=== PATIENT | female | born 2000 | race Caucasian/White ===

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

== ENCOUNTER 2019-04-24 11:52 | Observation (INO) ==
[2019-04-24] MEDS ORDERED: ONDANSETRON 4 MG OD TAB PO STA (12:26)
[2019-04-24 12:49] LABS: Basophils # (auto) 0.02 K/uL (0-0.2); Basophils % (auto) 0.1 %; Eosinophils # (auto) 0.07 K/uL (0-0.5); Eosinophils % (auto) 0.4 %; Hematocrit (blood only) 35.8 % (37-47); Hemoglobin 12.2 g/dL (12.0-16.0); Immature Granulocytes # (auto) 0.12 K/uL (0.00-0.02); Immature Granulocytes % (auto) 0.6 %; Lymphocytes # (auto) 1.65 K/uL (1.2-3.4); Lymphocytes % (auto) 8.7 %; Mean Corpuscular Volume 85.9 fL (80-100); Mean Platelet Volume 11.5 fL (7.4-10.4); Monocytes # (auto) 1.01 K/uL (0.11-0.59); Monocytes % (auto) 5.3 %; Neutrophils % (auto) 84.9 %; Platelet Count 167 K/uL (130-400); RDW Coefficient of Variation 13.5 % (11.5-14.5); RDW Standard Deviation 42.1 fL (36.4-46.3); Red Blood Count 4.17 M/uL (4.2-5.4); White Blood Count 19.07 K/uL (4.8-10.8)
[2019-04-24 12:50] LABS: Mean Corpuscular Hgb Conc 34.1 g/dL (32-36)
[2019-04-24 13:23] LABS: Albumin Level 2.8 gm/dl (3.4-5.0); BUN Creatinine Ratio 6.5 (10-20); Calcium 9.1 mg/dl (8.5-10.1); Est GFR (African American) 89.6; Est GFR (Non-African American) 77.3
[2019-04-24 13:26] LABS: Albumin Globulin Ratio 0.8 (0.9-2); Bilirubin,Total 0.5 mg/dl (0.2-1); Globulin 3.7 gm/dl (2.5-4.0); Total Protein 6.5 gm/dl (6.4-8.2)
[2019-04-24] MEDS ORDERED: ACETAMINOPHEN 325 MG TAB PO PRN (13:30)
[2019-04-24] MEDS ORDERED: PROMETHAZINE HCL 25 MG in SODIUM CHLORIDE 0.9% 50 ML IV PRN (13:35)
[2019-04-24] MEDS ORDERED: MoRPHine SULFATE 2 MG/ML CARP IV PRN ×2 (13:35→15:50)
[2019-04-24] MEDS ORDERED: ONDANSETRON INJ 2 MG/ML 2 ML VIAL IV PRN (13:35)
[2019-04-24] MEDS ORDERED: ACETAMINOPHEN 1000 MG/100 ML IV IV ONE (13:38)
[2019-04-24] MEDS ORDERED: ACETAMINOPHEN 1,000 MG/100 ML VIAL IV STA (13:42)
[2019-04-24 13:45] LABS: Appearance Urine Cloudy (Clear); Bacteria Urine Automated 1+ (Negative); Bilirubin Urine Negative (Negative); Blood Urine Trace (Negative); Color Urine Dark Yellow; Epithelial Cell Urine Auto >30 /lpf (0-5); Glucose Urine UA Negative (Negative); Ketones Urine Negative (Negative); Leukocyte Esterase Urine 1+ (Negative); Nitrite Urine Negative (Negative); Protein Urine Trace (Negative); Specific Gravity Urine 1.025 (1.000-1.030); Urobilinogen Urine Negative (Negative); WBC Urine Automated >30 /hpf (0-5)
[2019-04-24] MEDS: LACTATED RINGER'S 1,000 ML IV PRN ×3 (13:46→19:06)
--- NOTE | 2019-04-24 14:32 | Obstetrical Progress Note ---
Date of Service April 24, 2019 Assessment & Plan (1) Kidney stone complicating : Subjective 19yo G1 at 34.4 weeks GA. Patient presents with acute onset sharp stabbing right midback and flank pain that started last night. Reports onset on N/V this morning. Denies fevers/chills or dysuria. Reports pain is colicky in nature to her pain that is unchanged with movement. Patient is noted to be constantly moving during interview. Denies any prior hx of kidney stone. Denies any ab dominal pain. Denies contractions, VB, or LOF. Good FM Physical Exam Gastrointestinal (Abdomen): normal bowel sounds, soft, nontender, no hepatosplenomegaly Inspection/Auscultation: abdomen normal to inspection Percussion/Palpation: abdomen soft and normal to percussion; no guarding and abdomen not rigid Genitourinary: no CVA tenderness OB Exam Monitor Tracing: + external FHT monitor used and + category I Results & Data Vital Signs (Past 12 Hours) Vital Signs Temp Pulse Resp BP 04/24/19 12:01 36.5 C 20 04/24/19 11:54 75 132/60
--- NOTE | 2019-04-24 14:35 | History & Physical Report ---
Date of Service April 24, 2019 Assessment & Plan (1) Kidney stone complicating : 19yo G1 at 34.4 weeks GA. 1. Fetus: Reactive NST, qdaily NST 2. Labor: No S/S 3. Kidney stone: Continue IV fluids. Tylenol scheduled with morphine for breakthrough. + soft markers for UTI will start Macrobid awaiting urine culture. History of Present Illness Primary Care Provider: NO PCP 19yo G1 at 34.4 weeks GA. Patient presents with acute onset sharp stabbing right midback and flank pain that started last night. Reports onset on N/V this morning. Denies fevers/chills or dysuria. Reports pain is colicky in nature to her pain that is unchanged with movement. Patient is noted to be constantly moving during interview. Denies any prior hx of kidney stone. Denies any abdominal pain. Denies contractions, VB, or LOF. Good FM Allergies Allergy/AdvReac Type Severity Reaction Status Date / Time No Known Allergies Allergy Verified 04/12/19 18:08 Patient History Medical History History of otitis media Hx: UTI (urinary tract infection) No chronic diseases present No significant past surgical history Social History Preferred Language: Malay Beliefs That Will Affect Care: None marital status: Single Current Living Situation: Other Current Living Situation Comment: sister Feels Safe at Home: Yes Smoking Status: Current every day smoker Tobacco Type: cigarettes Second Hand Exposure: Yes Hx Alcohol Use: No Hx Substance Use: No Physical Exam Cardiovascular: RRR, no murmur, no edema Chest (Breasts): normal inspection/palpation of breasts Gastrointestinal (Abdomen): normal bowel sounds, soft, nontender, no hepatosplenomegaly Inspection/Auscultation: abdomen not distended Percussion/Palpation: no guarding and abdomen not rigid Genitourinary: no CVA tenderness OB Exam Monitor Tracing: + external FHT monitor used and + category I Results & Data Vital Signs (Past 12 Hours) Vital Signs Temp Pulse Resp BP 04/24/19 12:01 36.5 C 20 04/24/19 11:54 75 132/60 Laboratory Results Laboratory Results - last 24 hr 04/24/19 04/24/19 04/24/19 12:33 12:33 13:15 WBC 19.07 H RBC 4.17 L Hgb 12.2 Hct 35.8 L MCV 85.9 MCH 29.3 MCHC 34.1 RDW Std Deviation 42.1 RDW Coeff of Martha 13.5 Plt Count 167 MPV 11.5 H Immature Gran % (Auto) 0.6 Neut % (Auto) 84.9 Lymph % (Auto) 8.7 Brooke % (Auto) 5.3 Eos % (Auto) 0.4 Baso % (Auto) 0.1 Immature Gran # (Auto) 0.12 H Neut # (Auto) 16.20 H Lymph # (Auto) 1.65 Brooke # (Auto) 1.01 H Eos # (Auto) 0.07 Baso # (Auto) 0.02 Sodium 140 Potassium 4.0 Chloride 111 H Carbon Dioxide 21 Anion Gap 9.0 BUN 7 Creatinine 1.04 Est Cr Clr Drug Dosing 102.0 Est GFR ( Amer) 89.6 Est GFR (Non-Af Amer) 77.3 BUN/Creatinine Ratio 6.5 L Glucose 83 Calcium 9.1 Total Bilirubin 0.5 AST 18 ALT 19 Alkaline Phosphatase 103 Total Protein 6.5 Albumin 2.8 L Globulin 3.7 Albumin/Globulin Ratio 0.8 L Urine Color Dark Yellow Urine Appearance Cloudy A Urine pH 6.0 Ur Specific [place] 1.025 Urine Protein Trace H Urine Glucose (UA) Negative Urine Ketones Negative Urine Blood Trace H Urine Nitrite Negative Urine Bilirubin Negative Urine Urobilinogen Negative Ur Leukocyte Esterase 1+ H Urine WBC (Auto) >30 H Urine RBC (Auto) 10-30 H U Epithel Cells (Auto) >30 H Urine Bacteria (Auto) 1+ H Urine Crystals Calcium Oxalate A
--- NOTE | 2019-04-24 15:10 | Ultrasound Report ---
RENAL ULTRASOUND HISTORY: Eval for kidney stones COMPARISON: None. FINDINGS: Right kidney: 12.7 cm. Mild hydronephrosis. No definite renal calculi. Normal corticomedullary differ entiation and cortical thickness. Left kidney: 12.0 cm. No hydronephrosis. Normal corticomedullary differentiation and cortical thickne ss. Bladder: Decompressed and not visualized. IMPRESSION: 1. Mild right hydronephrosis. 2. No renal calculi identified. 3. Normal left kidney. Electronically signed by: Humble Sommers M.D. 04/24/2019 3:09 PM
[2019-04-24] MEDS: NITROFURANTOIN MONOHYDRATE 100 MG CAP PO SCH (16:58)
[2019-04-24] MEDS: ACETAMINOPHEN 325 MG TAB PO SCH ×2 (18:47→22:34)
[2019-04-24] MEDS ORDERED: NITROFURANTOIN MONOHYDRATE 100 MG CAP PO SCH (21:00)
[2019-04-25] MEDS: LACTATED RINGER'S 1,000 ML IV PRN ×2 (00:34→05:24)
[2019-04-25] MEDS: ACETAMINOPHEN 325 MG TAB PO SCH ×2 (02:30→05:29)
[2019-04-25] MEDS ORDERED: NITROFURANTOIN MONOHYDRATE 100 MG CAP PO SCH (06:00)
--- NOTE | 2019-04-25 08:08 | Obstetrical Progress Note ---
Date of Service April 25, 2019 Assessment & Plan (1) Kidney stone complicating : 19yo G1 at 34.4 weeks GA. 1. Fetus: Reactive NST today, qdaily NST 2. Labor: No S/S 3. Kidney stone: Near resolution of symptoms. patient stable for discharge. + soft markers for UTI will d/c with rx for Macrobid awaiting urine culture. 4. Recommended clinic follow up for later this week 5. vitals: normal Subjective Patient doing well this morning. No acute events overnight. Reports significant symptomatic improvement with only a mild dull ache in her mid back. Patient has remained afrebrile. No N/V. No ctx, VB, LOF. Goood FM Physical Exam Cardiovascular: RRR, no murmur, no edema Chest (Breasts): normal inspection/palpation of breasts Gastrointestinal (Abdomen): normal bowel sounds, soft, nontender, no hepatosplenomegaly Inspection/Auscultation: abdomen not distended Percussion/Palpation: no guarding and abdomen not rigid Genitourinary: no CVA tenderness OB Exam Monitor Tracing: + external FHT monitor used and + category I Reactive NST Results & Data Vital Signs (Past 12 Hours) Vital Signs Temp Pulse Resp BP 04/25/19 07:28 73 118/56 L 04/24/19 23:11 36.8 C 18 04/24/19 23:10 64 129/60
--- NOTE | 2019-04-30 20:12 | Discharge Summary ---
HOSPITAL COURSE: The patient is a 19-year-old, G1, at 34 weeks 4 days gestational age at time of admission. The patient was admitted for a sharp, stabbing mid back pain and flank pain as well as nausea and vomiting. The patient underwent evaluation for kidney stones in the ascending urinary tract infection. The initial urinalysis showed some soft markers for urinary tract infections, but was otherwise unremarkable. This was followed by a renal ultrasound, which showed a mildly dilated right ureter, but was otherwise unremarkable. The patient was admitted for pain control secondary to the kidney stones as well as nausea and vomiting and inability to keep down fluids. The patient was given IV fluids as well as IV pain control medications. The patient was given Zofran for nausea and vomiting, which all helped to significantly relieve her symptoms. The patient remained afebrile and had reported being afebrile at time of admission. The patient reported on hospital day #2 that her pain had significantly improved overnight and was no longer needing medications. She was also reporting that her nausea and vomiting had resolved and felt well enough for discharge. The patient was then discharged home in stable condition. Urinalysis returned later that day which was noted to be negative. The patient was preliminarily started on p.o., nitrofurantoin for the positive soft markers on the urinalysis and was discontinued after the urine culture returned negative. The patient was discharged home in stable condition with follow up in clinic in 1 week.
== END 2019-04-25 08:45 | disposition home or self-care (01) ==
LOC: OPB 11:52 → 4S1 11:52

== ENCOUNTER 2019-05-17 21:02 | Inpatient (IN) ==
[2019-05-17] MEDS ORDERED: miSOPROStol 50 MCG TAB PO ONE (21:49)
[2019-05-17] MEDS ORDERED: OXYTOCIN 30 UNITS/500 ML BAG IV PRN (21:49)
[2019-05-17] MEDS ORDERED: PENICILLIN G POTASSIUM 6 MU in DEXTROSE 5% 250 ML IV STA (21:58)
[2019-05-17 22:10] LABS: Hematocrit (blood only) 34.2 % (37-47); Hemoglobin 11.6 g/dL (12.0-16.0); Mean Corpuscular Volume 85.3 fL (80-100); Mean Platelet Volume 11.6 fL (7.4-10.4); Platelet Count 179 K/uL (130-400); RDW Coefficient of Variation 13.3 % (11.5-14.5); RDW Standard Deviation 41.3 fL (36.4-46.3); Red Blood Count 4.01 M/uL (4.2-5.4); White Blood Count 12.94 K/uL (4.8-10.8)
[2019-05-17] MEDS: LACTATED RINGER'S 1,000 ML IV PRN (22:19)
[2019-05-17 22:20] LABS: Mean Corpuscular Hgb Conc 33.9 g/dL (32-36)
[2019-05-18] MEDS: PENICILLIN G POTASSIUM 3 MU in DEXTROSE 5% 100 ML IV PRN ×6 (02:22→22:06)
[2019-05-18] MEDS ORDERED: BUTORPHANOL TARTRATE 2 MG/ML VIAL IV PRN (02:37)
[2019-05-18] MEDS ORDERED: OXYTOCIN 30 UNITS/500 ML BAG IV PRN (02:37)
[2019-05-18] MEDS ORDERED: BUTORPHANOL TARTRATE 2 MG/ML VIAL IV STA (06:51)
[2019-05-18] MEDS ORDERED: BUTORPHANOL TARTRATE 1 MG/ML VIAL IV STA (07:20)
--- NOTE | 2019-05-18 07:43 | History & Physical Report ---
Date of Service May 18, 2019 Assessment & Plan (1) Supervision of normal first : (2) 38 weeks gestation of : (3) Carrier of group B Streptococcus: (4) PROM (premature rupture of membranes): pt has been admitted. iv, labs. categ 1 fetus. on pit. History of Present Illness Chief Complaint: leaking clear fluid since 630am on 05/17/19 Primary Care Provider: NO PCP 19yo at 38+wks shikha presents to L&D after PROM yesterday at 630pm. She called and noted initial gush and then continued leaking. Was seen earlier in day and no rom found. She denied ctx. Offered and accepted cytotec po. Contractions increased and started on pitocin. Required a couple doses of stadol for pain control. Cervix only 1cm. pnc c/b GBS POS, on pcn pnl rh Pos , rubella Immune, gbs pos obh: g1 gynh: no stds pmh: neg psh: neg Allergies Allergy/AdvReac Type Severity Reaction Status Date / Time No Known Allergies Allergy Verified 05/17/19 11:14 Home Medications Home Medications Medication Instructions Recorded Confirmed Type prenat.vits,colt,eoz-oyiq-veyrq 1 caplet PO DAILY 05/01/19 05/17/19 History Patient History Medical History History of otitis media Hx: UTI (urinary tract infection) Kidney stone complicating Kidney stone at 34 weeks gestation, passed an no longer problematic No chronic diseases present No significant past surgical history Family History Grandfather (Paternal) Diabetes Grandmother (Paternal) Diabetes Grandfather (Paternal) Myocardial infarction Aunt Breast cancer Grandfather No problems noted. Father Heart disease Deep vein thrombosis Hypertension Pulmonary embolism Mother Hypertension Grandmother (Maternal) Cervical cancer Sister Thyroid disease Social History Preferred Language: Lebanese Communication Ability: Effective Draw Hand Required: No Beliefs That Will Affect Care: None marital status: Single Current Living Situation: Family Current Living Situation Comment: sister Other Information That Helps Us Care for You: No Feels Safe at Home: Yes Safety Concerns: Feels Safe At This Time Smoking Status: Current every day smoker Tobacco Type: cigarettes ; Do You Dip or Chew Tobacco: No ; Second Hand Exposure: Yes ; Hx Alcohol Use: No Hx Substance Use: No Review of Systems as per Subjective / HPI Physical Exam Constitutional: WD/WN, vitals as above Respiratory: normal respiratory effort, lungs clear to auscultation Cardiovascular: Rate/Rhythm: regular rate and regular rhythm Gastrointestinal (Abdomen): soft gravid nt efw 7-8# Musculoskeletal: tr edema nontender calves Neurologic: grossly normal Psychiatric: A+Ox3, euthymic affect Genitourinary: Manual OB Exam: + cervical dilation (per nurse, cephalic per nurse) 1 cm, + cervical effacement 60% and + station high OB Exam Monitor Tracing: + external FHT monitor used (130 mod variability ), + external uterine monitor used (q2), + category I and + normal FHT variability Results & Data Vital Signs (Past 12 Hours) Vital Signs Temp Pulse Resp BP 05/18/19 07:19 65 134/69 05/18/19 07:08 98.2 F 71 20 130/60 05/18/19 06:22 78 20 128/86 05/18/19 05:18 98.1 F 71 16 120/63 05/18/19 05:05 98.4 F 18 05/18/19 04:00 18 05/18/19 03:46 98.4 F 18 05/18/19 03:44 71 120/57 L 05/18/19 01:48 87 125/64 05/18/19 00:47 18 05/17/19 23:23 18 05/17/19 23:06 98.6 F 05/17/19 23:00 18 05/17/19 22:39 83 111/61 05/17/19 22:30 18 05/17/19 22:00 18 05/17/19 21:20 18 05/17/19 21:08 99 H 141/78 H 05/17/19 21:06 98.6 F 18 Code Status & VTE Plan VTE Prophylaxis Plan VTE Prophylaxis will be ordered: No
--- NOTE | 2019-05-18 09:16 | Labor Progress Brief Note ---
Date of Service May 18, 2019 Subjective Reason For Note: Other (Change of shift) 19yo at 37 (+) weeks GA, admitted with PROM. course remarkable for (+) GBS. Pt initially given po cytotec and then pitocin per protocol. Stadol given for pain control. Assessment & Plan (1) PROM (premature rupture of membranes): (2) 38 weeks gestation of : - tracing Cat I - IUPC placed for easier pitcocin management - PCN for GBS - continue current plan Physical Exam Gastrointestinal (Abdomen): Gravid, obese, vtx, (+) FHT's, mild palpable ctx's q 3', EFW 8 lbs Genitourinary: OB Exam Monitor Tracing: + category I and + normal FHT variability Cervix: 80/-3, IUPC placed Results & Data Vital Signs (Past 12 Hours) Vital Signs Temp Pulse Resp BP 05/18/19 08:51 98.4 F 79 18 123/64 05/18/19 08:18 71 125/64 05/18/19 07:19 65 134/69 05/18/19 07:08 98.2 F 71 20 130/60 05/18/19 06:22 78 20 128/86 05/18/19 05:18 98.1 F 71 16 120/63 05/18/19 05:05 98.4 F 18 05/18/19 04:00 18 05/18/19 03:46 98.4 F 18 05/18/19 03:44 71 120/57 L 05/18/19 01:48 87 125/64 05/18/19 00:47 18 05/17/19 23:23 18 05/17/19 23:06 98.6 F 05/17/19 23:00 18 05/17/19 22:39 83 111/61 05/17/19 22:30 18 05/17/19 22:00 18 05/17/19 21:20 18
[2019-05-18] MEDS: LACTATED RINGER'S 1,000 ML IV PRN ×2 (09:47→16:55)
[2019-05-18] MEDS ORDERED: ePHEDrine sulfate 50 MG/ML AMP ONE (10:14)
[2019-05-18] MEDS ORDERED: BUPIVACAINE 0.25% 30 ML VIAL ONE (10:14)
[2019-05-18] MEDS ORDERED: fentaNYL citrate 100 MCG/2 ML VIAL ONE (10:15)
[2019-05-18] MEDS ORDERED: fentaNYL 2MCG/ML ROPIV 1.25MG/ML 100 ML BAG EPI ONE (10:16)
--- NOTE | 2019-05-18 11:03 | Anesthesiology Consultation ---
Date of Service May 18, 2019 Assessment & Plan Chart Review Chart Review: Acceptable Risk for Labor Epidural Consults Requested none History Height/Weight Height: 5 ft 4 in Weight: 101.151 kg Allergies Allergy/AdvReac Type Severity Reaction Status Date / Time No Known Allergies Allergy Verified 05/17/19 11:14 Medications Home Medications Medication Instructions Recorded Confirmed Last Taken prenat.vits,colt,ewa-cnjd-ajtdm 1 caplet PO DAILY 05/01/19 05/17/19 05/16/19 Active Medications Generic Name Dose Route Start Last Admin Trade Name Freq PRN Reason Stop Dose Admin Lactated Ringer's 1,000 mls @ 125 mls/hr 05/17/19 21:49 05/18/19 09:47 Lr IV 05/19/19 21:48 999 mls/hr .Q8H PRN Administration L&D Protocol Protocol Penicillin G Potassium 3 mu/ 106 mls @ 100 mls/hr 05/17/19 21:49 05/18/19 10:11 Dextrose IV 05/27/19 21:48 100 mls/hr Q4H PRN Administration Give until delivery Oxytocin 30 units in 500 mls @ 13 mls/hr 05/18/19 02:37 05/18/19 08:57 Pitocin IV 05/20/19 02:36 0.78 units/hr .Q24H PRN 13 mls/hr Labor Induction/Augmentation Titration Protocol 0.78 UNITS/HR Past Medical History Medical History History of otitis media Hx: UTI (urinary tract infection) Kidney stone complicating Kidney stone at 34 weeks gestation, passed an no longer problematic No chronic diseases present No significant past surgical history Past Family History Family History Grandfather (Paternal) Diabetes Grandmother (Paternal) Diabetes Grandfather (Paternal) Myocardial infarction Aunt Breast cancer Grandfather No problems noted. Father Heart disease Deep vein thrombosis Hypertension Pulmonary embolism Mother Hypertension Grandmother (Maternal) Cervical cancer Sister Thyroid disease Social History Smoking Status: Current every day smoker tobacco type: cigarettes Do You Dip or Chew Tobacco: No Hx Alcohol Use: No Hx Substance Use: No substance use type: does not use Physical Exam Vital Signs Last Vital Signs Temp 36.7 C 05/18/19 10:31 Pulse 83 05/18/19 11:01 Resp 20 05/18/19 10:31 BP 112/59 L 05/18/19 11:01 Pulse Ox 96 05/18/19 10:59 Testing Laboratory Results 05/17/19 22:00
[2019-05-18] MEDS ORDERED: ePHEDrine sulfate 50 MG/ML AMP IV PRN (11:10)
[2019-05-18] MEDS ORDERED: NALOXONE HCL 0.4 MG/1 ML VIAL/CARP IV PRN (11:10)
[2019-05-18] MEDS ORDERED: DiphenhydrAMINE HCL 50 MG/ML VIAL IV PRN (11:10)
[2019-05-18] MEDS ORDERED: NALBUPHINE HCL INJ 10 MG/ML AMP IV PRN (11:10)
[2019-05-18] MEDS ORDERED: NALOXONE HCL 1 MG in SODIUM CHLORIDE 0.9% 1000ML 1,000 ML IV PRN (11:10)
--- NOTE | 2019-05-18 18:25 | Labor Progress Brief Note ---
Date of Service May 18, 2019 Subjective Reason For Note: Routine Evaluation Comfortable with epidural Assessment & Plan (1) PROM (premature rupture of membranes): - tracing Cat I - comfortable with epidural - continue pitocin Physical Exam Physical Exam: Cervix: 3/100/-1 Results & Data Vital Signs (Past 12 Hours) Vital Signs Temp Pulse Resp BP Pulse Ox 05/18/19 18:20 88 123/87 05/18/19 18:19 79 99 05/18/19 18:15 76 94 05/18/19 18:14 79 96 05/18/19 18:09 70 98 05/18/19 18:06 66 120/63 05/18/19 18:04 69 96 05/18/19 17:59 69 96 05/18/19 17:58 98.1 F 18 05/18/19 17:54 63 97 05/18/19 17:51 68 102/57 L 05/18/19 17:49 69 97 05/18/19 17:44 70 97 05/18/19 17:39 66 96 05/18/19 17:36 67 118/58 L 05/18/19 17:34 66 97 05/18/19 17:29 68 97 05/18/19 17:24 67 97 05/18/19 17:21 70 124/59 L 05/18/19 17:19 72 98 05/18/19 17:14 71 97 05/18/19 17:11 73 93 05/18/19 17:09 70 97 05/18/19 17:06 70 109/59 L 05/18/19 17:04 82 96 05/18/19 16:59 71 96 05/18/19 16:54 71 97 05/18/19 16:50 80 126/58 L 05/18/19 16:49 83 98 05/18/19 16:44 84 99 05/18/19 16:42 98.1 F 18 05/18/19 16:39 77 98 05/18/19 16:35 71 108/59 L 05/18/19 16:34 80 97 05/18/19 16:29 79 97 05/18/19 16:24 73 98 05/18/19 16:20 100 H 96/54 L 94 05/18/19 16:19 85 94 05/18/19 16:14 74 96 05/18/19 16:09 76 96 05/18/19 16:05 76 108/59 L 05/18/19 16:04 74 97 05/18/19 16:03 77 94 05/18/19 15:59 73 95 05/18/19 15:58 74 94 05/18/19 15:54 72 96 05/18/19 15:50 67 108/58 L 05/18/19 15:49 80 97 05/18/19 15:45 83 94 05/18/19 15:44 74 95 05/18/19 15:39 75 95 05/18/19 15:35 77 103/57 L 05/18/19 15:34 74 95 05/18/19 15:29 74 96 05/18/19 15:24 74 98 05/18/19 15:21 79 94 05/18/19 15:20 84 109/59 L 05/18/19 15:19 83 96 05/18/19 15:14 80 97 05/18/19 15:09 86 97 05/18/19 15:05 70 130/61 05/18/19 15:04 81 97 05/18/19 14:59 87 98 05/18/19 14:54 73 96 05/18/19 14:50 83 107/59 L 05/18/19 14:49 78 96 05/18/19 14:44 76 97 05/18/19 14:41 86 93 05/18/19 14:39 75 96 05/18/19 14:38 98.4 F 18 05/18/19 14:36 76 118/59 L 05/18/19 14:34 77 96 05/18/19 14:29 78 97 05/18/19 14:24 71 95 05/18/19 14:21 80 94 05/18/19 14:20 75 100/56 L 05/18/19 14:19 70 96 05/18/19 14:15 73 94 05/18/19 14:14 74 95 05/18/19 14:09 72 98 05/18/19 14:08 79 94 05/18/19 14:05 80 111/63 05/18/19 14:04 72 97 05/18/19 13:59 85 97 05/18/19 13:54 84 98 05/18/19 13:50 93 H 130/71 05/18/19 13:49 78 98 08/16/19 13:44 72 98 05/18/19 13:41 73 94 05/18/19 13:39 69 96 05/18/19 13:35 67 126/59 L 05/18/19 13:34 73 96 05/18/19 13:29 71 96 05/18/19 13:24 73 95 05/18/19 13:20 66 125/65 05/18/19 13:19 72 97 05/18/19 13:14 84 98 05/18/19 13:09 69 98 05/18/19 13:05 69 123/65 05/18/19 13:04 71 96 05/18/19 12:59 76 96 05/18/19 12:54 71 95 05/18/19 12:50 68 119/63 05/18/19 12:49 71 97 05/18/19 12:44 72 96 05/18/19 12:39 70 97 05/18/19 12:38 72 130/77 05/18/19 12:34 72 97 05/18/19 12:29 72 97 05/18/19 12:25 98.6 F 18 05/18/19 12:24 69 97 05/18/19 12:19 75 97 05/18/19 12:14 73 97 05/18/19 12:09 77 96 05/18/19 12:05 78 113/68 05/18/19 12:04 87 96 05/18/19 11:59 68 97 05/18/19 11:54 70 97 05/18/19 11:50 86 124/73 05/18/19 11:49 86 97 05/18/19 11:44 77 97 05/18/19 11:39 77 98 05/18/19 11:35 95 H 120/67 05/18/19 11:34 94 H 98 05/18/19 11:29 101 H 98 05/18/19 11:24 70 96 05/18/19 11:20 73 114/56 L 05/18/19 11:19 73 95 05/18/19 11:17 77 94 05/18/19 11:14 65 96 05/18/19 11:09 66 96 05/18/19 11:04 78 114/55 L 96 05/18/19 11:01 83 112/59 L 05/18/19 10:59 90 96 05/18/19 10:58 72 121/56 L 05/18/19 10:55 70 123/61 05/18/19 10:54 82 96 05/18/19 10:52 77 122/60 05/18/19 10:49 69 125/71 96 05/18/19 10:46 71 123/68 05/18/19 10:44 75 96 05/18/19 10:39 91 H 96 05/18/19 10:34 86 97 05/18/19 10:31 98.1 F 88 20 123/68 05/18/19 10:29 82 98 05/18/19 10:19 75 121/70 05/18/19 09:19 72 114/64 05/18/19 08:51 98.4 F 79 18 123/64 05/18/19 08:18 71 125/64 05/18/19 07:19 65 134/69 05/18/19 07:08 98.2 F 71 20 130/60
[2019-05-18] MEDS: fentaNYL 2MCG/ML ROPIV 1.25MG/ML 100 ML BAG EPI PRN (19:36)
[2019-05-18] MEDS ORDERED: Nursing to Pharmacy Communication ONE (23:48)
[2019-05-19] MEDS ORDERED: LIDOCAINE HCL 2% MPF (LOCAL) 5 ML VIAL INFIL ONE (00:12)
[2019-05-19] MEDS ORDERED: fentaNYL citrate 100 MCG/2 ML VIAL ONE (00:12)
[2019-05-19] MEDS: LACTATED RINGER'S 1,000 ML IV PRN (00:26)
[2019-05-19] MEDS: fentaNYL 2MCG/ML ROPIV 1.25MG/ML 100 ML BAG EPI PRN (01:10)
[2019-05-19] MEDS: PENICILLIN G POTASSIUM 3 MU in DEXTROSE 5% 100 ML IV PRN (02:06)
[2019-05-19 03:11] LABS: Base Excess Cord Venous Blood -2.6 mEq/L (-7.7-1.9); Cord Venous Blood HCO3 22 mmol/L (18.4-26.8); Cord Venous Blood PCO2 39 mmHg (30.4-57.2); Cord Venous Blood PO2 23 mmHg (14.1-43.3); Cord Venous Blood pH 7.38 (7.20-7.44)
--- NOTE | 2019-05-19 03:11 | Delivery Summary ---
Vaginal Delivery Summary Date of Service May 19, 2019 Findings: Viable male with Apgars of 8 and 9 arterial and venous cord gases pending midline periclitoral laceration and left lateral second-degree laceration both repaired with running 2-0 Vicryl cord gases cord blood samples obtained placenta delivered spontaneously estimated blood loss 300 cc Labor note: The patient is a 19-year-old 1 para 0 with an EDC of 02 June at 37+ weeks gestational age who presented to labor and delivery with premature rupture of membranes. The patient had a gush of fluid and presented to L&D where rupture of membranes was confirmed. Patient's course was remarkable for a kidney stone at 34 weeks gestational age which appeared to pass spontaneously. Laboratory values for the show blood type of A+ antibody negative, rubella immune, hepatitis B negative, she had a negative cell free DNA screening, she had a normal 1 hour Glucola x2, and had positive GBS bacteria during the . Upon admission after rupture of membranes was diagnosed the patient was noted to be fingertip and 50%. Tracing was category 1. Patient initially received Cytotec 50 mcg p.o. and after contraction pattern developed was started on Pitocin augmentation. The patient received Stadol 1 mg IV x2 for pain control. Approximately 8 hours after admission the patient was still 1 cm dilated but jaymie in a regular pattern. Delivering physician assumed care for the patient. Intrauterine pressure catheter was placed and Pitocin was continued to be increased per protocol to achieve an adequate labor pattern. Patient became very uncomfortable and anesthesia was consulted and an epidural was placed. The patient progressed slowly into an active labor pattern and then went from 5 cm to fully dilated and approximately 4 hours. Patient began her second stage and pushed for approximately 30 minutes delivering the vi able male cord was clamped and cut cord gases cord blood samples obtained placenta was delivered spontaneously with some gentle traction on the placental body at 15 minutes . A midline second-degree periclitoral laceration and a left lateral laceration were both repaired with running 4-0 Vicryl sutures. Estimated blood loss for the delivery was 300 cc. Sponge and needle count was correct.
[2019-05-19] MEDS ORDERED: OXYTOCIN 30 UNITS/500 ML BAG IV PRN (03:15)
[2019-05-19] MEDS ORDERED: SUPERCREAM 0.870% 15 GM JAR EXT PRN (03:15)
[2019-05-19] MEDS ORDERED: ACETAMINOPHEN 325 MG TAB PO PRN (03:15)
[2019-05-19] MEDS ORDERED: HYDROCORTISONE ACETATE 25 MG SUPP PR PRN (03:15)
[2019-05-19] MEDS ORDERED: BENZOCAINE 20% AER SPR 82.5 GM CAN EXT PRN (03:15)
[2019-05-19] MEDS ORDERED: DIPHTHERIA/TETANUS/PERTUSSIS 0.5 ML SYR/VIAL IM ONE (03:15)
[2019-05-19 03:16] LABS: CO2 Cord Arterial Blood 45 mmHg (39.1-73.5); HCO3 Cord Arterial Blood 20 mmol/L (19.7-28.5); O2 Saturation Cord Venous Bld < 60.0 % (<68); pH Cord Arterial Blood 7.27 (7.1-7.38)
[2019-05-19 03:17] LABS: Oxygen Sat Cord Arterial Blood < 60.0 % (<60)
[2019-05-19] MEDS: IBUPROFEN 600 MG TAB PO PRN ×2 (04:16→16:01)
--- NOTE | 2019-05-19 06:14 | Obstetrical Progress Note ---
Date of Service May 19, 2019 Assessment & Plan (1) Status post vaginal delivery: Padmini is a 19 yo on PPD 1 after - GBS+, Rh +, Rubella immune; treated with penicillin -Vitals reviewed and WNL -patient is doing clinically well encourage ambulation, provide analgesia as needed, monitor lochia - After discharge will have [address] Juan. Subjective Ambulation: ambulating normally Voiding: no voiding problems Passing Gas:: Yes Diet Tolerance:: regular diet Lochia:: Moderate Feeding Type:: breast feeding Current Pain Level(1-10): 3 examined at bedside Constitutional: no fever, no chills and no sweats Eyes: no worsening vision Respiratory: no cough and no dyspnea Cardiovascular: no chest pain, no palpitations, no edema and no calf pain Breast: no breast pain Gastrointestinal: no nausea and no vomiting Genitourinary (female): no dysuria and no urinary frequency Neurologic: no headache(s) Physical Exam Constitutional WD/WN, vitals as above no acute distress Respiratory normal respiratory effort, lungs clear to auscultation does not use accessory muscles Auscultation: no crackles, no rales, no rhonchi, no wheezes and no pleural rub Cardiovascular Rate/Rhythm: regular rate and regular rhythm Heart Sounds: normal S1 and normal S2; no gallop, no murmur and no cardiac rub Extremities: no calf tenderness and no pedal edema Gastrointestinal (Abdomen) Inspection/Auscultation: normal bowel sounds; abdomen not distended Percussion/Palpation: abdomen soft Genitourinary Uterus: fundus firm, palpable _ cm below the uterus Results & Data Vital Signs (Past 12 Hours) Vital Signs Temp Pulse Resp BP Pulse Ox 05/19/19 05:31 75 116/59 L 05/19/19 05:21 107 H 124/65 05/19/19 05:06 95 H 114/61 05/19/19 04:51 87 18 122/63 05/19/19 04:36 86 117/64 05/19/19 04:21 93 H 18 106/52 L 05/19/19 04:06 86 105/55 L 05/19/19 03:51 98 H 18 110/59 L 05/19/19 03:36 100 H 16 112/64 05/19/19 03:21 98 H 18 109/58 L 05/19/19 03:06 97 H 18 116/57 L 05/19/19 02:56 116 H 96 05/19/19 02:51 99 H 18 130/63 95 05/19/19 02:46 114 H 95 05/19/19 02:44 112 H 139/74 05/19/19 02:41 96 H 94 05/19/19 02:36 97 H 95 05/19/19 02:31 134 H 96 05/19/19 02:30 130 H 133/78 05/19/19 02:26 100 H 94 05/19/19 02:21 85 96 05/19/19 02:16 82 95 05/19/19 02:14 144 H 118/55 L 84 L 05/19/19 02:11 79 77 L 05/19/19 02:08 99 H 81 L 05/19/19 02:06 80 96 05/19/19 02:02 75 69 L 05/19/19 02:01 94 H 124/56 L 05/19/19 02:00 93 H 97 05/19/19 01:55 37.1 C 91 H 20 95 05/19/19 01:50 92 H 97 05/19/19 01:45 94 H 97 05/19/19 01:44 98 H 121/63 05/19/19 01:40 77 96 05/19/19 01:35 93 H 95 05/19/19 01:30 100 H 114/59 L 96 05/19/19 01:25 98 H 95 05/19/19 01:20 91 H 95 05/19/19 01:15 86 96 05/19/19 01:14 93 H 20 116/68 05/19/19 01:10 94 H 97 05/19/19 01:05 103 H 98 05/19/19 01:00 123 H 143/67 H 97 05/19/19 00:55 85 97 05/19/19 00:50 80 96 05/19/19 00:45 84 96 05/19/19 00:44 104 H 122/62 05/19/19 00:41 94 H 128/60 05/19/19 00:40 104 H 97 05/19/19 00:38 98 H 127/58 L 05/19/19 00:35 80 122/57 L 94 05/19/19 00:32 88 16 121/59 L 05/19/19 00:30 79 94 05/19/19 00:29 97 H 16 120/69 05/19/19 00:26 95 H 118/59 L 05/19/19 00:25 96 H 97 05/19/19 00:23 96 H 16 123/62 05/19/19 00:22 86 92 05/19/19 00:21 83 18 112/57 L 05/19/19 00:20 80 93 05/19/19 00:15 94 H 93 05/19/19 00:14 85 93 05/19/19 00:10 119 H 95 05/19/19 00:07 95 H 94 05/19/19 00:05 100 H 136/76 97 05/19/19 00:00 36.9 C 100 H 20 97 05/18/19 23:55 98 H 95 05/18/19 23:52 91 H 94 05/18/19 23:50 80 127/62 96 05/18/19 23:45 103 H 97 05/18/19 23:40 105 H 97 05/18/19 23:35 104 H 132/75 94 05/18/19 23:33 82 92 05/18/19 23:30 86 97 05/18/19 23:27 86 93 05/18/19 23:25 88 96 05/18/19 23:21 69 125/56 L 05/18/19 23:20 74 96 05/18/19 23:17 83 91 05/18/19 23:15 87 97 05/18/19 23:10 77 96 05/18/19 23:05 75 132/61 95 05/18/19 23:00 79 97 05/18/19 22:59 85 93 05/18/19 22:55 88 97 05/18/19 22:53 78 92 05/18/19 22:50 83 138/63 97 05/18/19 22:48 81 91 05/18/19 22:45 85 98 05/18/19 22:40 74 94 05/18/19 22:39 72 94 05/18/19 22:35 77 120/58 L 98 05/18/19 22:33 81 93 05/18/19 22:30 76 97 05/18/19 22:25 78 97 05/18/19 22:21 78 16 129/63 93 05/18/19 22:20 83 97 05/18/19 22:15 82 95 05/18/19 22:13 86 94 05/18/19 22:10 99 H 98 05/18/19 22:08 36.8 C 16 05/18/19 22:05 74 123/57 L 96 05/18/19 22:01 79 94 05/18/19 22:00 82 96 05/18/19 21:55 87 97 05/18/19 21:51 86 117/58 L 05/18/19 21:50 83 97 05/18/19 21:45 84 97 05/18/19 21:40 80 98 05/18/19 21:35 79 111/58 L 96 05/18/19 21:30 76 97 05/18/19 21:25 82 93 05/18/19 21:21 89 117/51 L 94 05/18/19 21:20 91 H 96 05/18/19 21:15 91 H 94 05/18/19 21:14 81 95 05/18/19 21:09 86 97 05/18/19 21:08 96 H 92 05/18/19 21:06 97 H 16 110/52 L 05/18/19 21:04 94 H 96 05/18/19 21:01 72 94 05/18/19 21:00 36.9 C 16 05/18/19 20:59 89 97 05/18/19 20:54 74 96 05/18/19 20:50 78 119/56 L 05/18/19 20:49 83 97 05/18/19 20:48 84 92 05/18/19 20:44 80 96 05/18/19 20:39 78 98 05/18/19 20:35 79 16 121/58 L 05/18/19 20:34 75 96 05/18/19 20:29 78 97 05/18/19 20:27 79 92 05/18/19 20:24 73 97 05/18/19 20:21 71 122/56 L 05/18/19 20:19 67 97 05/18/19 20:14 71 95 05/18/19 20:09 68 97 05/18/19 20:06 67 131/59 L 05/18/19 20:04 104 H 99 08/16/19 19:59 73 97 05/18/19 19:54 74 98 16 19:50 63 16 108/54 L 05/18/19 19:49 71 98 16 19:47 74 92 16 19:44 73 98 16 19:39 80 98 16 19:35 67 16 124/63 16 19:34 76 98 16 19:29 72 97 16 19:24 73 96 05/18/19 19:21 70 125/67 05/18/19 19:19 73 98 05/18/19 19:14 79 98 05/18/19 19:09 86 99 05/18/19 19:06 37.0 C 87 16 133/80 05/18/19 19:04 79 97 05/18/19 19:00 79 94 05/18/19 18:59 71 95 05/18/19 18:54 68 96 05/18/19 18:50 64 121/60 05/18/19 18:49 71 95 05/18/19 18:45 73 94 05/18/19 18:44 70 95 05/18/19 18:39 72 97 16 18:35 68 124/60 05/18/19 18:34 70 97 05/18/19 18:29 70 98 05/18/19 18:24 75 96 16 18:20 88 123/87 05/18/19 18:19 79 99 16 18:15 76 94 05/18/19 18:14 79 96
--- NOTE | 2019-05-19 06:44 | Anesthesia Procedure Note ---
Date of Service May 19, 2019 Anesthesia Post Epidural Note Vital Signs Vital Signs: Temp Pulse Resp BP Pulse Ox 37.1 C 75 18 116/59 L 96 05/19/19 01:55 05/19/19 05:31 05/19/19 04:51 05/19/19 05:31 05/19/19 02:56 Pain Intensity Abdomen: Pain Intensity: 10 Notes Mental Status: alert / awake / arousable Nausea / Vomiting: adequately controlled Pain: adequately controlled Airway Patency, RR, SpO2: stable & adequate BP & HR: stable & adequate Hydration State: stable & adequate Neuraxial Anesthesia: was administered and sensory block is resolving Anesthetic Complications: no major complications apparent and Pt Satisfied with anesthetic care Epidural: Removed without complications and With tip intact
[2019-05-19] MEDS: DOCUSATE SODIUM 100 MG CAP PO SCH ×2 (08:44→21:04)
[2019-05-19] MEDS: PRENATAL VITAMIN 1 TAB PO SCH (08:44)
[2019-05-19] MEDS: FERROUS SULFATE 325 MG TAB PO SCH (08:44)
--- NOTE | 2019-05-20 08:35 | Obstetrical Progress Note ---
Date of Service May 20, 2019 Assessment & Plan (1) Status post vaginal delivery: satisfactory progress continue current care plan. Present on Admission?: No Day #:: 1 Subjective Ambulation: ambulating normally Voiding: no voiding problems Passing Gas:: Yes Diet Tolerance:: regular diet Lochia:: Small Feeding Type:: breast feeding Review of Systems All systems reviewed & are unremarkable except as noted in HPI & below Physical Exam Constitutional WD/WN, vitals as above Cardiovascular Extremities: no calf tenderness Gastrointestinal (Abdomen) normal bowel sounds, soft, nontender, no hepatosplenomegaly Psychiatric A+Ox3, euthymic affect Genitourinary OB Exam Abdomen: + fundal height Fundus: + firm and + relation to umbilicus (1 below U) Results & Data Vital Signs (Past 12 Hours) Vital Signs Temp Pulse Resp BP Pulse Ox 05/20/19 04:45 97.7 F 75 16 94/60 L 97 05/19/19 23:35 83 17 93/60 L 96
[2019-05-20] MEDS: FERROUS SULFATE 325 MG TAB PO SCH (08:37)
[2019-05-20] MEDS: PRENATAL VITAMIN 1 TAB PO SCH (08:37)
[2019-05-20] MEDS: DOCUSATE SODIUM 100 MG CAP PO SCH ×2 (08:37→20:14)
[2019-05-20] MEDS ORDERED: BISACODYL 5 MG TABEC PO SCH (20:00)
[2019-05-20] MEDS: IBUPROFEN 600 MG TAB PO PRN (20:14)
--- NOTE | 2019-05-21 06:01 | Obstetrical Progress Note ---
Date of Service <Lynne Ness MD - Last Filed: 05/21/19 06:43> May 21, 2019 Assessment & Plan <Lynne Ness MD - Last Filed: 05/21/19 06:43> (1) Status post vaginal delivery: Padmini is a 19 yo on PPD 2 after - GBS+, Rh +, Rubella immune; treated with penicillin -Vitals reviewed and WNL -patient is doing clinically well Discharge instructions reviewed. Ready for d/c - After discharge will have [address] Juan. Subjective <Lynne Ness MD - Last Filed: 05/21/19 06:43> Ambulation: ambulating normally Voiding: no voiding problems Passing Gas:: Yes Diet Tolerance:: regular diet Lochia:: Small Feeding Type:: breast feeding Current Pain Level(1-10): 1 examined at bedside Constitutional: no fever, no chills and no sweats Eyes: no worsening vision Respiratory: no cough and no dyspnea Cardiovascular: no chest pain, no palpitations, no edema and no calf pain Breast: no breast pain Gastrointestinal: no nausea and no vomiting Genitourinary (female): no dysuria and no urinary frequency Neurologic: no headache(s) Physical Exam <Lynne Ness MD - Last Filed: 05/21/19 06:43> Constitutional WD/WN, vitals as above no acute distress Respiratory normal respiratory effort, lungs clear to auscultation does not use accessory muscles Auscultation: no crackles, no rales, no rhonchi, no wheezes and no pleural rub Cardiovascular Rate/Rhythm: regular rate and regular rhythm Heart Sounds: normal S1 and normal S2; no gallop, no murmur and no cardiac rub Extremities: no calf tenderness and no pedal edema Gastrointestinal (Abdomen) Inspection/Auscultation: normal bowel sounds; abdomen not distended Percussion/Palpation: abdomen soft Genitourinary Uterus: fundus firm, palpable 2 cm below the uterus Results & Data <Lynne Ness MD - Last Filed: 05/21/19 06:43> Vital Signs (Past 12 Hours) Vital Signs Temp Pulse Resp BP Pulse Ox 05/20/19 22:42 36.9 C 84 16 112/73 97 05/20/19 20:10 37.0 C 80 16 101/64 96 <Krystyna Ballard MD, FACOG - Last Filed: 05/21/19 08:05> Co-Signing Physician Notes Resident Physician Supervision Note: I interviewed and examined the patient. Discussed with Dr. Ness and agree with findings and plan as documented in the note. Any exceptions or clarifications are listed here: [None] Documented By: Krystyna Ballard MD, FACOG
[2019-05-21 07:06] LABS: Hematocrit (blood only) 32.6 % (37-47); Hemoglobin 10.9 g/dL (12.0-16.0)
[2019-05-21] MEDS: PRENATAL VITAMIN 1 TAB PO SCH (08:51)
[2019-05-21] MEDS: DOCUSATE SODIUM 100 MG CAP PO SCH (08:51)
[2019-05-21] MEDS: FERROUS SULFATE 325 MG TAB PO SCH (08:51)
== END 2019-05-21 12:00 | disposition home or self-care (01) | DRG 807 ==
LOC: OPB 21:02 → 4S1 21:03 → 4S2 05-19 05:50

== ENCOUNTER 2019-05-29 15:22 | Inpatient (IN) ==
[2019-05-29] MEDS ORDERED: KETOROLAC 30 MG/ML VIAL IV STA (15:45)
[2019-05-29] MEDS ORDERED: SODIUM CHLORIDE 0.9% 1000ML 1,000 ML IV ONE (15:45)
[2019-05-29] MEDS ORDERED: MoRPHine SULFATE 4 MG/ML 1 ML CARP\\VIAL IV STA (15:45)
[2019-05-29 16:10] LABS: Basophils # (auto) 0.04 K/uL (0-0.2); Basophils % (auto) 0.3 %; Eosinophils # (auto) 0.18 K/uL (0-0.5); Eosinophils % (auto) 1.5 %; Hematocrit (blood only) 40.8 % (37-47); Immature Granulocytes # (auto) 0.05 K/uL (0.00-0.02); Immature Granulocytes % (auto) 0.4 %; Lymphocytes # (auto) 2.91 K/uL (1.2-3.4); Lymphocytes % (auto) 23.5 %; Mean Corpuscular Hemoglobin 28.9 pg (25-34); Mean Corpuscular Hgb Conc 34.3 g/dL (32-36); Mean Corpuscular Volume 84.1 fL (80-100); Mean Platelet Volume 10.6 fL (7.4-10.4); Monocytes # (auto) 0.73 K/uL (0.11-0.59); Monocytes % (auto) 5.9 %; Neutrophils # (auto) 8.48 K/uL (1.4-6.5); Neutrophils % (auto) 68.4 %; Platelet Count 375 K/uL (130-400); RDW Standard Deviation 39.3 fL (36.4-46.3); Red Blood Count 4.85 M/uL (4.2-5.4); White Blood Count 12.39 K/uL (4.8-10.8)
[2019-05-29 16:18] LABS: Appearance Urine Cloudy (Clear); Bacteria Urine Automated 1+ (Negative); Bilirubin Urine Negative (Negative); Blood Urine 3+ (Negative); Color Urine Yellow; Epithelial Cell Urine Auto >30 /lpf (0-5); Glucose Urine UA Negative (Negative); Ketones Urine Negative (Negative); Leukocyte Esterase Urine 2+ (Negative); Nitrite Urine Negative (Negative); Protein Urine Trace (Negative); Specific Gravity Urine 1.025 (1.000-1.030); Urobilinogen Urine Negative (Negative)
--- NOTE | 2019-05-29 16:20 | Emergency Department Note ---
History of Present Illness General Chief complaint: Flank Pain Stated complaint: POSSIBLE KIDNEY STONE History of Present Illness Maximum Pain Intensity: 8 This patient is a 19-year-old female who presents to the emergency department via private vehicle for evaluation of left flank pain that started this morning. The patient reports a history of dysuria for approximately 5 days. She is prone to UTIs. Patient was put on Keflex this morning, which she has been taking as prescribed. There has been no improvement. She has been taking Tylenol for the pain. She describes the pain as a sharp, stabbing, constant sensation that radiates to the left lower abdomen. No hematuria. No fever or chills. No nausea or vomiting. The patient reports a history of kidney stones. Of note, the patient is 10 days. No complications noted with the vaginal delivery. Home Medications Home Medications Medication Instructions Recorded Confirmed Type prenat.vits,colt,hjt-iwft-kjrac 1 caplet PO DAILY 05/01/19 05/29/19 History cephalexin [Keflex] 500 mg PO BID 05/29/19 05/29/19 History ondansetron 4 mg TRANSLINGUAL Q4 PRN 05/29/19 05/29/19 History Allergies Allergy/AdvReac Type Severity Reaction Status Date / Time No Known Allergies Allergy Verified 05/17/19 11:14 Past Med/Surg History Medical History History of otitis media Hx: UTI (urinary tract infection) Kidney stone complicating Kidney stone at 34 weeks gestation, passed an no longer problematic No significant past surgical history Family History Grandfather (Paternal) Diabetes Grandmother (Paternal) Diabetes Grandfather (Paternal) Myocardial infarction Aunt Breast cancer Grandfather No problems noted. Father Heart disease Deep vein thrombosis Hypertension Pulmonary embolism Mother Hypertension Grandmother (Maternal) Cervical cancer Sister Thyroid disease Social History Preferred Language: Croatian Communication Ability: Effective [employer] Required: No Beliefs That Will Affect Care: None marital status: Single Current Living Situation: Family Current Living Situation Comment: sister Feels Safe at Home: Yes Smoking Status: Current every day smoker Tobacco Type: cigarettes ; Second Hand Exposure: Yes ; Hx Alcohol Use: No Hx Substance Use: No Review of Systems A total of 10 systems reviewed and were otherwise negative Physical Exam Vital Signs Vital Signs - 24 hr 05/29/19 15:25 05/29/19 17:24 05/29/19 19:10 Temperature 36.7 C Temperature Source Oral Sepsis Recent Fever Within 48 Hours No Sepsis New/Unexplained Change in Mental Status No Sepsis Action Taken by Nursing No Action Required Pulse Rate 86 Pulse Rate [Right Finger] 48 L 54 L Pulse Rhythm Regular Pulse Strength Normal Respiratory Rate 20 16 20 Respiratory Effort / Characteristics Non-Labored Spontaneous Non-Labored Spontaneous Respiratory Depth Normal Normal Respiratory Pattern Regular Blood Pressure 117/76 Blood Pressure [Left Arm] 116/71 112/73 Blood Pressure Mean 89 Blood Pressure Mean [Left Arm] 86 86 Blood Pressure Position Sitting Blood Pressure Position [Left Arm] Sitting Pulse Oximetry 98 97 98 Oxygen Delivery Method Room Air Room Air Room Air Constitutional WD/WN, vitals as above Eyes EOM intact bilaterally ENMT external ear and nose normal, oropharynx normal Neck trachea midline Respiratory normal respiratory effort, lungs clear to auscultation Cardiovascular RRR, no murmur, no edema Gastrointestinal (Abdomen) normal bowel sounds, soft, nontender, no hepatosplenomegaly Musculoskeletal no cyanosis or clubbing, extremities motor strength 5/5 Skin no rashes, warm and dry Neurologic Alert and oriented x3. No focal motor deficits. Psychiatric Acting appropriately Course Patient was seen and examined Vital signs including blood pressure were reviewed medications list was verified with patient Labs were obtained, and a saline lock was established Morphine 4 mg IV, Toradol 30 mg IV and 1 L normal saline were ordered Imaging was performed and reviewed Upon reevaluation, the patient was resting comfortably. We discussed her results. She voiced understanding. She was in agreement with the disposition plan. The case was discussed with case management and subsequently the hospitalist team. They agreed to evaluate the patient for possible inpatient management. Consultations Consultation #1: Dr. Grace Administered Medications Ioversol (Optiray 320 100ml) 94 ml IV ONCE PRN PRN Reason: Interaction Checking Stop: 06/02/19 16:57 Last Admin: 05/29/19 16:58 Dose: 94 ml Documented by: [id number] Discontinued Medications Sodium Chloride (Nss 1000ml) 1,000 mls @ 999 mls/hr IV .Q1H1M ONE Stop: 05/29/19 16:45 Last Infusion: 05/29/19 17:26 Dose: 0 mls/hr Documented by: [id number] Admin: 05/29/19 16:20 Dose: 999 mls/hr Documented by: [id number] Ceftriaxone Sodium (Rocephin) 2,000 mg in 70 mls @ 140 mls/hr IV NOW STA Stop: 05/29/19 19:02 Last Infusion: 05/29/19 19:13 Dose: 0 mls/hr Documented by: [id number] Admin: 05/29/19 18:44 Dose: 140 mls/hr Documented by: [id number] Ketorolac Tromethamine (Toradol) 30 mg IV NOW STA Stop: 05/29/19 15:46 Last Admin: 05/29/19 16:21 Dose: 30 mg Documented by: [id number] Morphine Sulfate (Morphine Sulfate) 4 mg IV NOW STA Stop: 05/29/19 15:46 Last Admin: 05/29/19 16:20 Dose: 4 mg Documented by: [id number] Medical Decision Making Medical Records Attestation: I reviewed the patient's medical records. Home Medications Current Medication List: was personally reviewed by me Laboratory Data Attestation: I reviewed the patient's lab results. Result diagrams: 05/29/19 15:55 05/29/19 15:55 Lab Results 05/29/19 05/29/19 Range/Units 15:55 15:55 WBC 12.39 H (4.8-10.8) K/uL RBC 4.85 (4.2-5.4) M/uL Hgb 14.0 (12.0-16.0) g/dL Hct 40.8 (37-47) % MCV 84.1 (80-100) fL MCH 28.9 (25-34) pg MCHC 34.3 (32-36) g/dL RDW Std Deviation 39.3 (36.4-46.3) fL RDW Coeff of Martha 13.0 (11.5-14.5) % Plt Count 375 (130-400) K/uL MPV 10.6 H (7.4-10.4) fL Immature Gran % (Auto) 0.4 % Neut % (Auto) 68.4 % Lymph % (Auto) 23.5 % [place] % (Auto) 5.9 % Eos % (Auto) 1.5 % Baso % (Auto) 0.3 % Immature Gran # (Auto) 0.05 H (0.00-0.02) K/uL Neut # (Auto) 8.48 H (1.4-6.5) K/uL Lymph # (Auto) 2.91 (1.2-3.4) K/uL [place] # (Auto) 0.73 H (0.11-0.59) K/uL Eos # (Auto) 0.18 (0-0.5) K/uL Baso # (Auto) 0.04 (0-0.2) K/uL Sodium 143 (136-145) mmol/L Potassium 3.9 (3.5-5.1) mmol/L Chloride 111 H (98-107) mmol/L Carbon Dioxide 24 (21-32) mmol/L Anion Gap 8.0 (3-11) BUN 19 H (7-18) mg/dl Creatinine 1.30 H (0.6-1.2) mg/dl Est Cr Clr Drug Dosing 73.9 ml/min Est GFR ( Amer) 68.4 Est GFR (Non-Af Amer) 59.0 BUN/Creatinine Ratio 14.6 (10-20) Glucose 87 (70-99) mg/dl Calcium 9.0 (8.5-10.1) mg/dl Total Bilirubin 0.3 (0.2-1) mg/dl AST 17 (15-37) U/L ALT 21 (12-78) U/L Alkaline Phosphatase 98 (45-117) U/L Total Protein 7.2 (6.4-8.2) gm/dl Albumin 3.7 (3.4-5.0) gm/dl Globulin 3.5 (2.5-4.0) gm/dl Albumin/Globulin Ratio 1.1 (0.9-2) Imaging Data Attestation: I personally reviewed and interpreted this imaging study as follows: Radiologist's Impression: CT abdomen and pelvis without contrast 1. 3 mm obstructing calculus distal left ureter. 2. Moderate left hydroureteronephrosis. 3. Enlarged uterus consistent with the patient's post state. The above report was generated using voice recognition software. It may contain grammatical, syntax or spelling errors. Electronically signed by: Josh Kaur M.D. 05/29/2019 5:12 PM Dictated: 05/29/191708 Transcribed: 05/29/191708 [facility] Narrative Differential diagnosis: Musculoskeletal pain, ureteral stone, pyelonephritis, UTI, diverticulitis, uterine fibroids, retained products, among others This patient is a 19-year-old female who presents to the emergency department complaining of ongoing flank pain. She is currently being treated for a UTI. The patient was uncomfortable in appearance. She was nontoxic. No fever. Labs reveal mild leukocytosis in addition to an elevated creatinine. A CT scan was performed consistent with a distal 3 mm stone. The patient's urinalysis was a lso concerning for infection. Given these 2 factors and the patient's state, it was felt that hospitalist consultation was warranted. The patient was in agreement with the plan, and will be evaluated for possible inpatient management. She was given 1 dose of Rocephin after review of her past cultures. Impression & Plan Ureteral stone, Elevated serum creatinine, UTI (urinary tract infection) Discharge Plan Visit Data *Final* Discharge Date/Time: 05/29/19 20:46 Chief Complaint: Flank Pain Stated Complaint: POSSIBLE KIDNEY STONE ED Provider: Lora Armijo ED Midlevel Provider: Emi Tate Discharge Problem: Ureteral stone, Elevated serum creatinine, UTI (urinary tract infection) Patient Disposition: Admitted As Inpatient Discharge Instructions Interventions: ED Discharge Assessment Last Done: 05/29/19 20:46
[2019-05-29 16:35] LABS: Albumin Level 3.7 gm/dl (3.4-5.0); BUN Creatinine Ratio 14.6 (10-20); Creatinine Clr Calc Pharmacy 73.9 ml/min; Est GFR (African American) 68.4; Potassium 3.9 mmol/L (3.5-5.1)
[2019-05-29 16:38] LABS: Albumin Globulin Ratio 1.1 (0.9-2); Bilirubin,Total 0.3 mg/dl (0.2-1); Globulin 3.5 gm/dl (2.5-4.0); Total Protein 7.2 gm/dl (6.4-8.2)
[2019-05-29] MEDS ORDERED: IOVERSOL 100ml IV PRN (16:58)
--- NOTE | 2019-05-29 17:13 | CT Scan Report ---
CT abd pelvis IV con only CT DOSE: 672.87 mGy.cm HISTORY: Flank pain L flank pain dysuria hx stones TECHNIQUE: Multiaxial CT images of the abdomen and pelvis were performed following the use of intrave nous contrast. A dose lowering technique was utilized adhering to the principles of ALARA. COMPARISON STUDY: None. FINDINGS: Lung bases are clear. Liver spleen and pancreas are uniform. Right kidney enhances uniforml y. Left kidney shows slightly diminished enhancement characteristics with mild left hydroureteronephrosi s. Ureter is distended to a 3 mm calculus of the distal left ureter. The uterus is enlarged bases. Bladder is midline. No free fluid within the pelvic cul-de-s ac. Bowel pattern overall is nonobstructive. There are several small pericecal nodes. The appendix is inferior to the cecum and appears to be unre markable. IMPRESSION: 1. 3 mm obstructing calculus distal left ureter. 2. Moderate left hydroureteronephrosis. 3. Enlarged uterus consistent with the patient's post state. The above report was generated using voice recognition software. It may contain grammatical, syntax or spelling errors. Electronically signed by: Josh Kaur M.D. 05/29/2019 5:12 PM
[2019-05-29] MEDS ORDERED: cefTRIAXone SODIUM 2,000 MG/70 ML BAG IV STA (18:33)
--- NOTE | 2019-05-29 19:42 | History & Physical Report ---
Date of Service May 29, 2019 Assessment & Plan (1) Ureteral stone: Patient with 3mm obstructive calculus in the distal left ureter with moderate hydroureteronephrosis. UA+ for 1+ bacteria. +leukocytosis at 12.39. BUN and Cr elevated from prior, presently 19 and 1.3 from 7 and 1.04 -Observation to medical floor -Pain control with toradol PRN -Nausea control with Zofran PRN -IVF with NSS at 80mL/hr -Flomax 0.4mg po daily -Urine strainer -Ceftriaxone 1gm IV daily -Consult Urology - appreciate assistance with this case. Present on Admission?: Yes (2) Status post vaginal delivery: Patient 10d post , uncomplicated with healthy male baby. She is presently breast feeding but plans to use formula while inpatient. Reports that lochia is minimal -Perineal care as needed -Monitor for post complications Present on Admission?: Yes (3) Elevated serum creatinine: Mild elevation in BUN and Cr from prior. +UOP -NSS at 80mL/hr x 2 liters -Continue to monitor renal function -Avoid nephrotoxic agents F/E/N - NSS at 80mL/hr, monitor electrolytes and correct as needed, regular diet as tolerated. NPO after midnight for possible Urology intervention Ppx - Lovenox, patient is recently post- Code - Full Disposition - Admit to medical floor, obstructing renal stone with hydronephros is History of Present Illness Chief Complaint: renal stone Primary Care Provider: NO PCP Padmini Rouse is a pleasant 19yo C female, 10 days post- s/p of healthy male baby presenting with left flank pain. Patient had right sided renal stones during . This AM she developed severe left sided flank pain. She was seen at Urgent Care and given Keflex. Found to have 3mm obstructing stone in the left ureter with moderate hydronephrosis. She denies fevers, chills, nausea, vomiting. Denies hematuria but had some dysuria. No additional complaints at this time. ER Course: Ceftriaxone, Toradol, NSS, Morphine Allergies Allergy/AdvReac Type Severity Reaction Status Date / Time No Known Allergies Allergy Verified 05/17/19 11:14 Home Medications Home Medications Medication Instructions Recorded Confirmed Type prenat.vits,colt,gue-agll-smwqb 1 caplet PO DAILY 05/01/19 05/29/19 History cephalexin [Keflex] 500 mg PO BID 05/29/19 05/29/19 History ondansetron 4 mg TRANSLINGUAL Q4 PRN 05/29/19 05/29/19 History Past Med/Surg History Medical History History of otitis media Hx: UTI (urinary tract infection) Kidney stone complicating Kidney stone at 34 weeks gestation, passed an no longer problematic No significant past surgical history Family History Grandfather (Paternal) Diabetes Grandmother (Paternal) Diabetes Grandfather (Paternal) Myocardial infarction Aunt Breast cancer Grandfather No problems noted. Father Heart disease Deep vein thrombosis Hypertension Pulmonary embolism Mother Hypertension Grandmother (Maternal) Cervical cancer Sister Thyroid disease Social History Preferred Language: Puerto Rican Communication Ability: Effective Order Make Up Clerk Required: No Beliefs That Will Affect Care: None marital status: Single Current Living Situation: Family Current Living Situation Comment: sister Feels Safe at Home: Yes Smoking Status: Current every day smoker Tobacco Type: cigarettes ; Second Hand Exposure: Yes ; Hx Alcohol Use: No Hx Substance Use: No Review of Systems Review of Systems: All systems reviewed & are unremarkable except as noted in HPI & below Physical Exam Physical Exam: General: patient resting comfortably, NAD, non-toxic in appearance, AA&O x 4 Skin: warm, dry, intact, no rashes or lesions HEENT: NC/AT, PERRL, EOMI, anicteric sclera, conjunctiva without injection, external ear normal to inspection and nontender, nares patent, moist mucus membranes, dentition intact, no oropharyngeal lesions, neck supple, trachea midline, no LAD, no thyromegaly, no JVD Heart: +S1/S2, regular, no m/r/g Lungs: equal air entry bilaterally, no rales/rhonchi/wheezes Abd: +BS, soft, NT/ND, no masses/organomegaly/ascites Ext: warm, 2+ pulses in UE/LE bilaterally, no clubbing/cyanosis or edema Neuro: nonfocal, patient AA&O x 4, speech intact, no facial droop, moving all extremities on command with equal strength 5/5 Results & Data Vital Signs (Past 12 Hours) Vital Signs Temp Pulse Pulse Resp BP BP Pulse Ox 05/29/19 19:10 54 L 20 112/73 98 05/29/19 17:24 48 L 16 116/71 97 05/29/19 15:25 36.7 C 86 20 117/76 98 Laboratory Results Lab Results 05/29/19 05/29/19 05/29/19 Range/Units 15:55 15:55 Unknown WBC 12.39 H (4.8-10.8) K/uL RBC 4.85 (4.2-5.4) M/uL Hgb 14.0 (12.0-16.0) g/dL Hct 40.8 (37-47) % MCV 84.1 (80-100) fL MCH 28.9 (25-34) pg MCHC 34.3 (32-36) g/dL RDW Std Deviation 39.3 (36.4-46.3) fL RDW Coeff of Martha 13.0 (11.5-14.5) % Plt Count 375 (130-400) K/uL MPV 10.6 H (7.4-10.4) fL Immature Gran % (Auto) 0.4 % Neut % (Auto) 68.4 % Lymph % (Auto) 23.5 % Jenkins % (Auto) 5.9 % Eos % (Auto) 1.5 % Baso % (Auto) 0.3 % Immature Gran # (Auto) 0.05 H (0.00-0.02) K/uL Neut # (Auto) 8.48 H (1.4-6.5) K/uL Lymph # (Auto) 2.91 (1.2-3.4) K/uL Jenkins # (Auto) 0.73 H (0.11-0.59) K/uL Eos # (Auto) 0.18 (0-0.5) K/uL Baso # (Auto) 0.04 (0-0.2) K/uL Sodium 143 (136-145) mmol/L Potassium 3.9 (3.5-5.1) mmol/L Chloride 111 H (98-107) mmol/L Carbon Dioxide 24 (21-32) mmol/L Anion Gap 8.0 (3-11) BUN 19 H (7-18) mg/dl Creatinine 1.30 H (0.6-1.2) mg/dl Est Cr Clr Drug Dosing 73.9 ml/min Est GFR ( Amer) 68.4 Est GFR (Non-Af Amer) 59.0 BUN/Creatinine Ratio 14.6 (10-20) Glucose 87 (70-99) mg/dl Calcium 9.0 (8.5-10.1) mg/dl Total Bilirubin 0.3 (0.2-1) mg/dl AST 17 (15-37) U/L ALT 21 (12-78) U/L Alkaline Phosphatase 98 (45-117) U/L Total Protein 7.2 (6.4-8.2) gm/dl Albumin 3.7 (3.4-5.0) gm/dl Globulin 3.5 (2.5-4.0) gm/dl Albumin/Globulin Ratio 1.1 (0.9-2) Urine Color Yellow Urine Appearance Cloudy A (Clear) Urine pH 5.0 (4.5-7.5) Ur Specific Thurmond 1.025 (1.000-1.030) Urine Protein Trace H (Negative) Urine Glucose (UA) Negative (Negative) Urine Ketones Negative (Negative) Urine Blood 3+ H (Negative) Urine Nitrite Negative (Negative) Urine Bilirubin Negative (Negative) Urine Urobilinogen Negative (Negative) Ur Leukocyte Esterase 2+ H (Negative) Urine WBC (Auto) 10-30 H (0-5) /hpf Urine RBC (Auto) 10-30 H (0-4) /hpf U Hyaline Cast (Auto) 1-5 (0-5) /lpf U Epithel Cells (Auto) >30 H (0-5) /lpf Urine Bacteria (Auto) 1+ H (Negative) Urine Yeast Present A (None Prsent) Diagnostic Findings CT abd pelvis IV con only CT DOSE: 672.87 mGy.cm HISTORY: Flank pain L flank pain dysuria hx stones TECHNIQUE: Multiaxial CT images of the abdomen and pelvis were performed following the use of intravenous contrast. A dose lowering technique was utilized adhering to the principles of ALARA. COMPARISON STUDY: None. FINDINGS: Lung bases are clear. Liver spleen and pancreas are uniform. Right ki dney enhances uniformly. Left kidney shows slightly diminished enhancement characteristics with mild left hydroureteronephrosis. Ureter is distended to a 3 mm calculus of the distal left ureter. The uterus is enlarged bases. Bladder is midline. No free fluid within the pelvic cul-de-sac. Bowel pattern overall is nonobstructive. There are several small pericecal nodes. The appendix is inferior to the cecum and appears to be unremarkable. IMPRESSION: 1. 3 mm obstructing calculus distal left ureter. 2. Moderate left hydroureteronephrosis. 3. Enlarged uterus consistent with the patient's post state. The above report was generated using voice recognition software. It may contain grammatical, syntax or spelling errors. Electronically signed by: Josh Kaur M.D. 05/29/2019 5:12 PM Dictated: 05/29/19 1709 Transcribed: 05/29/19 1709 Code Status & VTE Plan Code Status Full VTE Prophylaxis Plan VTE Prophylaxis will be ordered: Yes PG Care Time/CCT Total # of Minutes Spent Total Time Spent with Patient: Total time spent is greater than 50% in coordination of care (as documented) at patient's floor/unit and/or counseling patient:
[2019-05-29] MEDS ORDERED: ACETAMINOPHEN 325 MG TAB PO PRN (20:58)
[2019-05-29] MEDS ORDERED: KETOROLAC TROMETHAMINE 15 MG/ML VIAL IV PRN (20:58)
[2019-05-29] MEDS ORDERED: ONDANSETRON INJ 2 MG/ML 2 ML VIAL IV PRN (20:58)
[2019-05-29] MEDS: SODIUM CHLORIDE 0.9% 1000ML 1,000 ML IV SCH (21:48)
[2019-05-29 21:54] LABS: INR 1.1 (0.9-1.1); Prothrombin Time 10.8 Seconds (9.0-12.0)
[2019-05-30 07:37] LABS: Basophils # (auto) 0.05 K/uL (0-0.2); Basophils % (auto) 0.5 %; Eosinophils % (auto) 3.3 %; Hematocrit (blood only) 35.3 % (37-47); Hemoglobin 11.9 g/dL (12.0-16.0); Immature Granulocytes # (auto) 0.03 K/uL (0.00-0.02); Immature Granulocytes % (auto) 0.3 %; Lymphocytes # (auto) 2.77 K/uL (1.2-3.4); Lymphocytes % (auto) 30.4 %; Mean Corpuscular Hemoglobin 28.7 pg (25-34); Mean Corpuscular Hgb Conc 33.7 g/dL (32-36); Mean Corpuscular Volume 85.1 fL (80-100); Mean Platelet Volume 10.3 fL (7.4-10.4); Monocytes # (auto) 0.56 K/uL (0.11-0.59); Monocytes % (auto) 6.2 %; Neutrophils # (auto) 5.39 K/uL (1.4-6.5); Neutrophils % (auto) 59.3 %; Platelet Count 272 K/uL (130-400); RDW Coefficient of Variation 13.1 % (11.5-14.5); RDW Standard Deviation 40.3 fL (36.4-46.3); Red Blood Count 4.15 M/uL (4.2-5.4)
[2019-05-30] MEDS ORDERED: ENOXAPARIN INJ 40 MG/0.4 ML SYR SQ SCH (08:00)
[2019-05-30 08:20] LABS: BUN Creatinine Ratio 15.2 (10-20); Calcium 8.5 mg/dl (8.5-10.1); Est GFR (African American) 93.9; Potassium 3.9 mmol/L (3.5-5.1)
--- NOTE | 2019-05-30 08:26 | Urology Consultation ---
Date of Consultation May 30, 2019 Assessment & Plan (1) Ureteral stone: 19yo F with 3mm obs distal left stone, moderate hydro; 10 days post She is currently asymptomatic and nontoxic appearing. Will plan on KUB today and allow for diet. No indication for acute surgical intervention today. It is very likely she will spontaneously pass this stone, pt is agreeable to discharge home with strainer. Will plan on outpatient f/u in 2-3 weeks for symptom check with renal US to ensure resolution of hydro. History of Present Illness Reason for Consultation: stone Requesting Physician: Dr. Boateng Attending Physician: Yesenia Boateng MD History of Present Illness 19yo F, admitted through [facility] ED last evening for complaints of severe left flank pain, radiating to her groin. Of note, she is 10days post , with no complications from delivery. CT reveals 3mm distal left ureteral stone with mild hydronephrosis. Of note, she was experiencing some dysuria approx 5 days prior and was placed on keflex by OB empirically for UTI. She is afebrile, nontoxic. Creatinine was slightly elevated to 1.3, which improved wth hydration today to 1.00. She is alert and oriented, in no distress this AM. She states she has been painfree since IV pain medication given in ED. She denies hematuria. No LUTS other than slight dysuria which has improved. She notes passing one stone on right side spontaneously one month ago, without difficulty. Allergies Allergy/AdvReac Type Severity Reaction Status Date / Time No Known Allergies Allergy Verified 05/17/19 11:14 Home Medications Home Medications Medication Instructions Recorded Confirmed Type prenat.vits,colt,els-gfkd-feaxk 1 caplet PO DAILY 05/01/19 05/29/19 History cephalexin [Keflex] 500 mg PO BID 5 Days #10 cap 05/30/19 Rx Patient History Medical History History of otitis media Hx: UTI (urinary tract infection) Kidney stone complicating Kidney stone at 34 weeks gestation, passed an no longer problematic No significant past surgical history Family History Grandfather (Paternal) Diabetes Grandmother (Paternal) Diabetes Grandfather (Paternal) Myocardial infarction Aunt Breast cancer Grandfather No problems noted. Father Heart disease Deep vein thrombosis Hypertension Pulmonary embolism Mother Hypertension Grandmother (Maternal) Cervical cancer Sister Thyroid disease Social History Preferred Language: Liberian Communication Ability: Effective Scaleman Required: No Beliefs That Will Affect Care: None marital status: Single Current Living Situation: Family Current Living Situation Comment: sister Other Information That Helps Us Care for You: No Feels Safe at Home: Yes Safety Concerns: Feels Safe At This Time Smoking Status: Light tobacco smoker Tobacco Type: cigarettes ; Do You Dip or Chew Tobacco: No ; Second Hand Exposure: Yes ; Tobacco Cessation Education Re quested by Patient: No Hx Alcohol Use: No Hx Substance Use: No Review of Systems Review of Systems: All systems reviewed & are unremarkable except as noted in HPI & below Physical Exam Constitutional: no acute distress and not ill appearing Eyes: no nystagmus ENMT: Ears: no hearing impairment Neck: trachea midline Respiratory: no respiratory distress and no cough Cardiovascular: Vessels: no JVD Chest (Breasts): Chest: normal inspection of chest Gastrointestinal (Abdomen): Inspection/Auscultation: abdomen not distended and no abdominal edema Percussion/Palpation: abdomen soft; abdomen nontender Musculoskeletal: Head/Neck/Chest: normocephalic and head atraumatic Skin: no rashes, warm and dry Neurologic: awake; not confused and not obtunded Psychiatric: Orientation: alert and oriented x 3 Eye Contact: good eye contact Affect: no depressed affect Lymphatic: no lymphadenopathy and no lymphedema Results & Data Vital Signs (Past 12 Hours) Vital Signs Temp Pulse Resp BP BP Pulse Ox 05/30/19 07:26 36.7 C 55 L 15 106/70 97 05/29/19 23:45 36.3 C L 48 L 16 102/60 97 05/29/19 20:30 48 L 20 101/61 98
[2019-05-30] MEDS ORDERED: PRENATAL VITAMIN 1 TAB PO SCH (09:00)
[2019-05-30] MEDS ORDERED: TAMSULOSIN HCL 0.4 MG CAP PO SCH (09:00)
[2019-05-30] MEDS: SODIUM CHLORIDE 0.9% 1000ML 1,000 ML IV SCH (09:07)
--- NOTE | 2019-05-30 09:29 | XRay Report ---
KUB HISTORY: left distal ureteral stone visibility COMPARISON: Abdomen and pelvis CT 05/29/2019. FINDINGS: The bowel gas pattern is unremarkable. There are no dilated loops of small bowel to suggest an obstruction. No renal calculi. No ureteral calculi. No pneumoperitoneum or pneumatosis. IMPRESSION: The patient's previously identified distal left ureteral stone is not identified by conventional radi ographic technique. Electronically signed by: Humble Sommers M.D. 05/30/2019 9:27 AM
--- NOTE | 2019-05-30 10:41 | Discharge Summary ---
Date of Service May 30, 2019 Admission HPI Per Admitting Provider Padmini Rouse is a pleasant 19yo C female, 10 days post- s/p of healthy male baby presenting with left flank pain. Patient had right sided renal stones during . This AM she developed severe left sided flank pain. She was seen at Urgent Care and given Keflex. Found to have 3mm obstructing stone in the left ureter with moderate hydronephrosis. She denies fevers, chills, nausea, vomiting. Denies hematuria but had some dysuria. No additional complaints at this time. ER Course: Ceftriaxone, Toradol, NSS, Morphine Admission Exam Per Admitting Provider General: patient resting comfortably, NAD, non-toxic in appearance, AA&O x 4 Skin: warm, dry, intact, no rashes or lesions HEENT: NC/AT, PERRL, EOMI, anicteric sclera, conjunctiva without injection, external ear normal to inspection and nontender, nares patent, moist mucus membranes, dentition intact, no oropharyngeal lesions, neck supple, trachea midline, no LAD, no thyromegaly, no JVD Heart: +S1/S2, regular, no m/r/g Lungs: equal air entry bilaterally, no rales/rhonchi/wheezes Abd: +BS, soft, NT/ND, no masses/organomegaly/ascites Ext: warm, 2+ pulses in UE/LE bilaterally, no clubbing/cyanosis or edema Neuro: nonfocal, patient AA&O x 4, speech intact, no facial droop, moving all extremities on command with equal strength 5/5 Principal Diagnosis Left-sided nephrolithiasis Discharge Exam General: Alert, oriented. No acute distress HEENT: NC/AT, PERRLA, EOMI, oropharynx moist. Chest: Nontender to palpation. CV: RRR, Normal s1, s2. No murmurs appreciated Resp: Breath sounds clear bilaterally, no increased effort of breathing. No crackles/rhonchi/rales. Abdomen: Soft, nontender, nondistended. No guarding. No organomegaly appreciated. Extremities: No edema in lower extremities bilaterally. Back: No CVA tenderness Discharge Data Allergies Allergy/AdvReac Type Severity Reaction Status Date / Time No Known Allergies Allergy Verified 05/17/19 11:14 Consultations 05/29/19 19:18 ED Decision to Admit Stat 05/29/19 20:58 Consult Urology Routine Ordered Studies 05/29/19 15:45 CT abd pelvis IV con only Stat Hospital Course (1) Ureteral stone: Pt is a 19yo presenting 10days with an obstructing 3mm left sided kidney stone. Left-sided Obstructive Ureteric stone -CT showed an obstructing stone with hydronephrosis on left side. -treated with tamsulosin, fluids, rocephin (1 dose), zofran for nausea and toradol for pain. -WBC > 12, 000 on admission, decreased to normal range >9000 on discharge. -UA with blood, leukocyte esterase and bacteria and WBCs -urine Cx pending on discharge. -KUB in AM after admission, showed NO obstructing stone; suggesting passage. Pt denied being aware of passage. -Discharged with Keflex 500mg BID for the next 5 days, and with strict instructions to remain hydrated. -Pt was much improved on discharge; denied pain, nausea, dysuria. -close PCP followup strongly recommended. GARIMA -bump in creatinine on admission to 1.40 -Likely due to acute obstructing process -On discharge, within normal range at 1.00 -advised to continue to stay hydrated as well. -close PCP followup recommended. state -doing well - -advised close followup with PCP and caddymaster. Total Time Total Time Spent Total Time Spent (In Minutes): 60 Discharge Plan Discharge Items Patient Disposition: Home - Self-Care Reason For Visit: RENAL STONE Discharge Diagnosis: Left sided kidney stone Discharge Goals: Decrease discomfort and Improve function Activity: Per 'Additional Instructions' section Non-emergency contact: Primary Care Provider Call non-emergency contact if: your symptoms worsen and you have a fever Follow-up/Referrals: PCP,NO [Primary Care Provider] - Diet: Regular Addtl Provider Instructions: Padmini, you were admitted because you had a left sided kidney stone that caused an infection in your kidneys. You were treated with antibiotics, pain medications, anti-nausea medications, fluids and a drug called Flomax to help you pass the stone. It appears that you did pass the stone as it was not seen on follow x-ray and your pain resolved. -Please continue to take the antibiotic Keflex twice a day at home for the next 5 days (first dose today). This antibiotic may be used during , but close followup with your STRATEGIC MARKETING MANAGER is strongly recommended as well. -Please continue to stay hydrated at home as this can lessen your risk of developing further kidney stones. Aim to drink enough water to keep your urine clear to light yellow. -Please seek immediate medical care should your symptoms return, or you develop a fever. Congrats on the new baby! It was our pleasure taking care of you during your stay here! Prescriptions: New cephalexin [Keflex] 500 mg capsule 500 mg PO BID 5 Days Qty: 10 RF: 0 Continued prenat.vits,colt,lxf-xwkt-grqky 1 caplet PO DAILY RF: 0 Discontinued cephalexin [Keflex] 500 mg capsule 500 mg PO BID RF: 0 ondansetron 4 mg tablet,disintegrating 4 mg translingual Q4 PRN (Reason: Nausea) RF: 0 Stand-Alone Forms: [facility] Discharge Orders: Discharge Order (Routine); Ordered 05/30/19 Ordered By: Carolyn Yu Admission Data Admit Date/Time: 05/29/19 19:58 Attending Provider: Yesenia Boateng Admit Provider: Pily Mendez Primary Care Provider: PCP,NO Other Providers: Fredy Montelongo ; Catarino Newman ; Santosh Grace I. ; Miguel Ward ; Dorita Dash ; Amandeep Sultana II ; Mariah Henderson ; Pily Mendez ; Gaurang Grace Service: Medical Other Interventions: Discharge Summary Assessment (RN) Last Done: 05/30/19 11:59 DC Date/Time DO NOT enter until pt leaves facility: 05/30/19 12:35 Supervising Physician Co-Signing Physician Notes Resident Physician Supervision Note: I independently interviewed and examined the patient and verified the diggs history and physical, reviewed labs and image studies, discussed the case with the resident Dr. Alston and agree with the findings and care plan. Resident Activity Tracking Resident Involvement: Resident Care Provided Care Provided: Adult Hospital Medicine
[2019-05-30] MEDS ORDERED: cefTRIAXone SODIUM 2,000 MG in DEXTROSE 5% 50 ML IV SCH (19:00)
== END 2019-05-30 12:35 | disposition home or self-care (01) | DRG 776 ==
LOC: ED 15:22 → 3W 19:58 → SUATTDRO 19:58 → 3W 20:46